=== PATIENT | female | born 1955 | race Caucasian/White ===

== ENCOUNTER → 2017-05-12 | Outpatient (CLI) | payer OTHER ==
[~2017-05-12] MED LIST: ASPIRIN325 PO; IBUPROFEN 200200 M1 PO; LIPITOR 20 MG T20 M1 PO; NEUPRO1 EAC1 TD; OMEPRAZOLE 20 M20 M1 PO; PROAIR HFA8.5 GM INH; QVAR8.7 G1 IH; SERTRALINE HCL100 MG PO; TRIAMTERENE-HC1 EAC3 PO; VERAPAMIL E.R240 M1 PO; VITAMIN D 5050000 I1 PO; ZAFIRLUKAST20 MG PO
== END ==
LOC: RAD 01:14
DX: Z12.31 Encounter for screening mammogram for malignant neoplasm of breast (principal)

== ENCOUNTER → 2017-05-19 | Outpatient (CLI) | payer OTHER | LOC: ULTRA 01:22 | DX: N60.02 Solitary cyst of left breast (principal); N60.01 Solitary cyst of right breast ==